=== PATIENT | male | born 1970 | race Caucasian/White ===

== ENCOUNTER 2019-06-27 01:56 | Emergency (ER) | payer SELFPAY ==
[~2019-06-27] VITALS: Ht 170.2 cm; Wt 91.0 kg
[2019-06-27] MEDS ORDERED: MORPHINE SULFATE 4 MG/ML CPJ (NOT FOR IM USE) IV STA (03:04)
[2019-06-27] MEDS ORDERED: KETOROLAC 30MG/ML VIAL IV STA (03:04)
[2019-06-27] MEDS ORDERED: ONDANSETRON HCL 4MG/2ML INJ IV STA (03:04)
[2019-06-27] MEDS ORDERED: SODIUM CHLORIDE 0.9% 1,000 ML IV ONE (03:04)
[2019-06-27] MEDS ORDERED: BACITRACIN ZINC OINT UDPKT TOP ONE (03:15)
[2019-06-27] MEDS ORDERED: TETANUS, DIPHTHERIA, PERTUSSIS VAC/PF 0.5ML (>7YR OLD) IM ONE (03:15)
[2019-06-27] MEDS ORDERED: FENTANYL CITRATE/PF 50MCG/ML 2ML VIAL IV ONE (04:00)
[2019-06-27] MEDS ORDERED: PROPOFOL 200MG/20ML VIAL IV ONE (04:00)
[2019-06-27] MEDS ORDERED: KETAMINE HCL 50 MG/ML 10ML IV ONE (04:00)
[2019-06-27] MEDS ORDERED: MIDAZOLAM HCL 2 MG/2 ML VIAL IV ONE (04:00)
[2019-06-27] MEDS ORDERED: MORPHINE SULFATE 4 MG/ML CPJ (NOT FOR IM USE) IV ONE (06:15)
[2019-06-27] MEDS ORDERED: ONDANSETRON HCL 4MG/2ML INJ IV ONE (06:15)
[2019-06-27] MEDS ORDERED: BACITRACIN 15GM TUBE TOP SCH (06:30)
[2019-06-27 06:50] VITALS: BP 140/92
== END 2019-06-27 06:56 | disposition home or self-care (01) ==
LOC: ER 03:05
DX: S53.094A Other dislocation of right radial head, initial encounter (principal); S01.511A Laceration without foreign body of lip, initial encounter; T51.8X1A Toxic effect of other alcohols, accidental (unintentional), initial encounter; W18.39XA Other fall on same level, initial encounter; Y93.9 Activity, unspecified; Y92.89 Other specified places as the place of occurrence of the external cause; Y99.8 Other external cause status
CPT/HCPCS: 24600; 36415; 70450; 73070; 73080; 80320; 90471; 90715; 96374; 96375; 96376; 99152; 99285; J1885; J2250; J2270; J2405; J2704; J3010; J3490; J7030; G0480